=== PATIENT | male | born 1945 | race Caucasian/White ===

== ENCOUNTER 2018-07-17 02:48 | Inpatient (IN) | payer MEDICARE ==
[2018-07-17 04:41] LABS: Basophils # (Auto) 0.1 K/mm3 (0.0-0.1); Eosinophils # (Auto) 0.1 K/mm3 (0.0-0.4); Eosinophils % (Auto) 2.1 % (0.0-4.3); Lymphocytes # (Auto) 1.7 K/mm3 (1.2-5.4); Lymphocytes % (Auto) 27.8 % (13.4-35.0); Mean Corpuscular HGB Conc 36 % (32-34); Mean Corpuscular Hemoglobin 34 pg (28-32); Mean Corpuscular Volume 95 fl (84-94); Monocytes # (Auto) 0.4 K/mm3 (0.0-0.8); Monocytes % (Auto) 6.2 % (0.0-7.3); Platelet Count 133 K/mm3 (140-440); Red Blood Count 4.05 M/mm3 (3.65-5.03); Red Cell Distribution Width 13.5 % (13.2-15.2)
[2018-07-17 04:46] LABS: Hematocrit 38.6 % (35.5-45.6); Hemoglobin 13.9 gm/dl (11.8-15.2)
[2018-07-17 05:04] LABS: Calcium 8.4 mg/dL (8.4-10.2)
--- NOTE | 2018-07-17 08:40 | Emergency Department Report ---
ED Fall HPI - General Chief Complaint: Altered Mental Status Stated Complaint: ETOH Time Seen by Provider: 07/17/18 08:16 Source: family, EMS Mode of arrival: Stretcher Limitations: No Limitations - History of Present Illness Initial Comments: Patient is a 72-year-old male that presents emergency room with complaints of fall with loss of consciousness and hitting his head. Patient states that he was at a [employer] party and was drinking and became weak and passed out. is at bedside and is helping with history of presenting illness. states that the patient passed out fell from a standing position and hit back of his head. states that a bystander did perform CPR on the patient because the patient was blue and did not have a pulse. Per 2 roundS of CPR was done by a bystander and the pulse returned. Patient was unconscious however for approximately 5 minutes.. 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 denies: chest paint, shortness of breath, abdominal pain, hematuria, unable to walk, vertigo, confusion - Related Data Allergies Allergy/AdvReac Type Severity Reaction Status Date / Time No Known Allergies Allergy Unverified 07/17/18 04:07 ED Review of Systems ROS: Stated complaint: ETOH Other details as noted in HPI Constitutional: denies: chills, fever Eyes: denies: eye pain, eye discharge, vision change ENT: denies: ear pain, throat pain Respiratory: denies: cough, shortness of breath, wheezing Cardiovascular: denies: chest pain, palpitations Endocrine: no symptoms reported Gastrointestinal: denies: abdominal pain, nausea, diarrhea Genitourinary: denies: urgency, dysuria Musculoskeletal: denies: back pain, joint swelling, arthralgia Skin: denies: rash, lesions Neurological: denies: headache, weakness, paresthesias Psychiatric: denies: anxiety, depression Hematological/Lymphatic: denies: easy bleeding, easy bruising ED Past Medical Hx - Past Medical History Previous Medical History?: Yes Hx Hypertension: Yes Hx Diabetes: Yes Additional medical history: ETOH abuse - Surgical History Past Surgical History?: No - Family History Family history: no significant - Social History Smoking Status: Never Smoker Substance Use Type: Alcohol ED Physical Exam - General Limitations: Altered Mental Status, Other General appearance: alert, appears intoxicated, lethargic (BUT AROUSABLE. ) - Head Head exam: Present: atraumatic, normocephalic - Eye Eye exam: Present: normal appearance - ENT ENT exam: Present: mucous membranes moist - Neck Neck exam: Present: normal inspection - Respiratory Respiratory exam: Present: normal lung sounds bilaterally. Absent: respiratory distress - Cardiovascular Cardiovascular Exam: Present: regular rate, normal rhythm. Absent: systolic murmur, diastolic murmur, rubs, gallop - GI/Abdominal GI/Abdominal exam: Present: soft, normal bowel sounds - Rectal Rectal exam: Present: deferred - Extremities Exam Extremities exam: Present: normal inspection - Back Exam Back exam: Present: normal inspection - Neurological Exam Neurological exam: Present: alert, oriented X3 (patient is confused about the event only) - Psychiatric Psychiatric exam: Present: normal affect, normal mood - Skin Skin exam: Present: warm, dry, intact, normal color. Absent: rash ED Course Vital Signs 07/17/18 07/17/18 07/17/18 03:52 03:59 04:00 Temperature 97.7 F Pulse Rate 68 65 Respiratory 16 24 Rate Blood Pressure 130/75 124/70 Blood Pressure [Right] O2 Sat by Pulse 96 96 Oximetry 07/17/18 07/17/18 07/17/18 04:16 04:30 04:46 Temperature Pulse Rate 68 68 69 Respiratory 13 22 17 Rate Blood Pressure 116/75 116/75 113/77 Blood Pressure [Right] O2 Sat by Pulse 97 97 99 Oximetry 07/17/18 07/17/18 07/17/18 05:00 05:15 05:30 Temperature Pulse Rate 69 72 71 Respiratory 13 16 18 Rate Blood Pressure 133/77 140/81 133/75 Blood Pressure [Right] O2 Sat by Pulse 98 98 98 Oximetry 07/17/18 07/17/18 07/17/18 05:46 06:00 06:15 Temperature Pulse Rate 71 Respiratory 18 Rate Blood Pressure 105/54 133/75 104/61 Blood Pressure [Right] O2 Sat by Pulse 96 98 97 Oximetry 07/17/18 07/17/18 07/17/18 06:30 06:45 07:00 Temperature Pulse Rate 69 71 71 Respiratory 21 15 17 Rate Blood Pressure 107/61 108/57 132/76 Blood Pressure [Right] O2 Sat by Pulse 96 97 96 Oximetry 07/17/18 07/17/18 07/17/18 07:16 07:33 07:43 Temperature Pulse Rate 71 Respiratory 19 Rate Blood Pressure 132/76 132/76 Blood Pressure 132/76 [Right] O2 Sat by Pulse 95 75 L Oximetry 07/17/18 07/17/18 07/17/18 07:45 08:00 08:15 Temperature Pulse Rate 72 Respiratory 18 Rate Blood Pressure 128/71 114/70 113/66 Blood Pressure [Right] O2 Sat by Pulse 95 Oximetry 07/17/18 07/17/18 07/17/18 08:30 08:46 09:00 Temperature Pulse Rate 72 75 71 Respiratory 22 17 20 Rate Blood Pressure 108/61 158/83 129/73 Blood Pressure [Right] O2 Sat by Pulse 99 96 Oximetry 07/17/18 07/17/18 07/17/18 09:15 09:30 09:50 Temperature Pulse Rate 73 71 74 Respiratory 16 22 15 Rate Blood Pressure 125/68 119/67 119/67 Blood Pressure [Right] O2 Sat by Pulse 98 99 97 Oximetry 07/17/18 07/17/18 07/17/18 10:00 10:15 10:30 Temperature Pulse Rate 73 72 73 Respiratory 16 15 16 Rate Blood Pressure 113/71 114/69 100/76 Blood Pressure [Right] O2 Sat by Pulse 94 96 97 Oximetry 07/17/18 07/17/18 07/17/18 10:46 10:52 11:00 Temperature Pulse Rate 73 73 Respiratory 14 18 20 Rate Blood Pressure 121/75 127/71 Blood Pressure [Right] O2 Sat by Pulse 96 98 96 Oximetry 07/17/18 07/17/18 07/17/18 11:15 11:30 11:45 Temperature Pulse Rate 76 76 73 Respiratory 16 18 18 Rate Blood Pressure 133/78 144/80 126/72 Blood Pressure [Right] O2 Sat by Pulse 88 96 95 Oximetry 07/17/18 07/17/18 07/17/18 12:00 12:15 12:30 Temperature Pulse Rate 75 74 75 Respiratory 20 20 20 Rate Blood Pressure 126/72 122/71 133/78 Blood Pressure [Right] O2 Sat by Pulse 95 85 96 Oximetry 07/17/18 07/17/18 07/17/18 12:45 13:00 13:13 Temperature 97.6 F Pulse Rate 73 74 Respiratory 20 23 Rate Blood Pressure 120/72 128/77 Blood Pressure [Right] O2 Sat by Pulse 94 97 Oximetry - Reevaluation(s) Reevaluation #1: Discussed all results with and patient. Patient agree with plan of care and admission. Patient admitted to the hospitalist service 07/17/18 11:25 Reevaluation #2: She will need a banana bag. An MRI was ordered and will be given the patient prior to leaving ER department. 07/17/18 13:44 - Consultations Consultation #1: Hospitalist consulted for admission. Hospitalist to admit patient. Hospitalist to assume care 07/17/18 11:25 ED Medical Decision Making - Lab Data Result diagrams: 07/17/18 04:32 07/17/18 04:32 - EKG Data EKG shows normal: sinus rhythm, axis, intervals, QRS complexes, ST-T waves Rate: normal - Radiology Data Radiology results: report reviewed FINAL REPORT EXAM: CT HEAD/BRAIN WO CON HISTORY: loc. head injury COMPARISON: None. TECHNIQUE: Multiple contiguous axial images were obtained from the skullbase to the vertex without administration of IV contrast. FINDINGS: There age related cerebral cortical atrophy. There is no parenchymal hemorrhage or extra-axial fluid collection. There is no mass or mass effect. There is no acute territorial infarct. There are scattered areas of decreased attenuation in the subcortical and periventricular white matter, likely due to chronic microvascular ischemic disease. There are calcifications of the bilateral internal carotid arteries and the bilateral vertebral arteries. The ventricles are midline. The subarachnoid spaces and basilar cisterns are clear. There is no skull fracture. The paranasal sinuses are clear. There is mucosal disease in the bilateral sphenoid sinuses. Bilateral orbits are intact. IMPRESSION: No acute intracranial abnormality. Chronic microvascular ischemic changes in the subcortical and periventricular white matter. Mucosal thickening of the sphenoid sinuses. Transcribed By: TERI Dictated By: DOMINIQUE BROWN MD Electronically Authenticated By: DOMINIQUE BROWN MD Signed Date/Time: 07/17/18 0955 - Medical Decision Making Patient is a 72-year-old male that presented to the emergency room with a fall and head injury and prolonged LOC. Per family patient arrested at the scene and was had 2 rounds of CPR. Patient will be admitted to the hospitalist service. Head CT was done in the ER and was negative. Labs are unremarkable except for hyperglycemia. Cardiac workup was done EKG shows sinus rhythm and cardiac labs are unremarkable. - Differential Diagnosis cardiac arrest. Concussion. Head injury. LOC. Acute alcohol intoxicatio Critical Care Time: Yes Critical care attestation.: If time is entered above; I have spent that time in minutes in the direct care of this critically ill patient, excluding procedure time. Critical Care Time: 25 MINUTES FOR CC TIME ED Disposition Clinical Impression: Cardiac arrest, LOC (loss of consciousness), Prolonged loss of consciousness Head injury Qualifiers: Encounter type: initial encounter Qualified Code(s): S09.90XA - Unspecified injury of head, initial encounter Fall Qualifiers: Encounter type: initial encounter Qualified Code(s): W19.XXXA - Unspecified fall, initial encounter Diabetes Qualifiers: Diabetes mellitus type: type 2 Diabetes mellitus snf insulin use: without snf use Diabetes mellitus complication status: without complication Qualified Code(s): E11.9 - Type 2 diabetes mellitus without complications Acute alcohol intoxication Qualifiers: Complication of substance-induced condition: with unspecified complication Qualified Code(s): F10.929 - Alcohol use, unspecified with intoxication, unspecified Disposition: DC-09 OP ADMIT IP TO THIS HOSP Is pt being admited?: Yes Does the pt Need Aspirin: No Condition: Critical Time of Disposition: 10:56
[2018-07-17 09:31] LABS: Creatine Kinase MB 1.4 ng/mL (0.0-4.0)
--- NOTE | 2018-07-17 09:56 | Cat Scan Report ---
FINAL REPORT EXAM: CT HEAD/BRAIN WO CON HISTORY: loc. head injury COMPARISON: None. TECHNIQUE: Multiple contiguous axial images were obtained from the skullbase to the vertex without administration of IV contrast. FINDINGS: There age related cerebral cortical atrophy. There is no parenchymal hemorrhage or extra-axial fluid collection. There is no mass or mass effect. There is no acute territorial infarct. There are scattered areas of decreased attenuation in the subcortical and periventricular white matter, likely due to chronic microvascular ischemic disease. There are calcifications of the bilateral internal carotid arteries and the bilateral vertebral arteries. The ventricles are midline. The subarachnoid spaces and basilar cisterns are clear. There is no skull fracture. The paranasal sinuses are clear. There is mucosal disease in the bilateral sphenoid sinuses. Bilateral orbits are intact. IMPRESSION: No acute intracranial abnormality. Chronic microvascular ischemic changes in the subcortical and periventricular white matter. Mucosal thickening of the sphenoid sinuses.
[2018-07-17 12:07] LABS: Bacteria,Urine 1+ /HPF (Negative); Bilirubin,Urine NEG (Negative); Blood,Urine NEG (Negative); Color,Urine Yellow (Yellow); Mucus,Urine FEW /HPF; Protein,Urine <15 mg/dL mg/dL (Negative); RBC,Urine < 1.0 /HPF (0.0-6.0); Urobilinogen,Urine < 2.0 mg/dL (<2.0)
[2018-07-17 12:17] LABS: Amphetamine Screen,Urine PRESUMPTIVE NEGATIVE; Benzodiazepines Screen,Urine PRESUMPTIVE NEGATIVE; Cannabinoid Screen,Urine PRESUMPTIVE NEGATIVE; Cocaine Screen,Urine PRESUMPTIVE NEGATIVE; Methadone Screen,Urine PRESUMPTIVE NEGATIVE; Opiate Screen,Urine PRESUMPTIVE NEGATIVE
[2018-07-17] MEDS ORDERED: VITAMIN B-1 100 MG, FOLVITE 1 MG, INFUVITE 10 ML in NACL 0.9% 1000 ML 1,000 ML IV ONE (14:00)
--- NOTE | 2018-07-17 17:41 | History and Physical Report ---
History of Present Illness Date of examination: 07/17/18 Date of admission: 07/17/18 12:25 Chief complaint: Chief complaint: Apparently passed out at 1 AM Cardiac arrest following the episode of syncope and CPR. History of present illness: History of Present Illness: 72-year-old male with history of hypertension and diabetes apparently passed out around 1 AM. Patient was brought to the emergency room around 2 AM. Patient was partying and had excess alcohol. As per patient was standing and when he suddenly collapsed to the floor. thought he was blue and in cardiac arrest. Started CPR by a bystander and apparently pulse returned. Patient was apparently unconscious for 5 minutes. No shortness of breath. No chest pain. No exacerbating or relieving factors. Syncope witnessed by a bystander and the . Patient still feels lightheaded Past Medical History Previous Medical History?: Yes Hx Hypertension: Yes Hx Diabetes: Yes Additional medical history: ETOH abuse Surgical History Past Surgical History?: No Family History Family history: no significant Social History Smoking Status: Never Smoker Substance Use Type: Alcohol Review of Systems ROS: Stated complaint: ETOH Other details as noted in HPI Constitutional: denies: chills, fever Eyes: denies: eye pain, eye discharge, vision change ENT: denies: ear pain, throat pain Respiratory: denies: cough, shortness of breath, wheezing Cardiovascular: denies: chest pain, palpitations Endocrine: no symptoms reported Gastrointestinal: denies: abdominal pain, nausea, diarrhea Genitourinary: denies: urgency, dysuria Musculoskeletal: denies: back pain, joint swelling, arthralgia Skin: denies: rash, lesions Neurological: denies: headache, weakness, paresthesias Psychiatric: denies: anxiety, depression Hematological/Lymphatic: denies: easy bleeding, easy bruising Medications and Allergies Allergies Allergy/AdvReac Type Severity Reaction Status Date / Time No Known Allergies Allergy Unverified 07/17/18 04:07 Active Meds: Active Medications Folic Acid 1 mg/ Multivitamins /Minerals 10 ml/ Thiamine HCl 100 mg/ Sodium Chloride 1,000 mls @ 125 mls/hr IV .BY DURATION GABRIELLA Sodium Chloride (Nacl 0.9% 1000 Ml) 1,000 mls @ 125 mls/hr IV .BY DURATION GABRIELLA Thiamine HCl 100 mg/ Folic Acid 1 mg/ Multivitamins/Minerals 10 ml/ Sodium Chloride 1,011.2 mls @ 250 mls/hr IV ONCE ONE Stop: 07/17/18 18:02 Exam - Physical Exam Narrative exam: Patient lying in bed and talking - Constitutional Vitals: Temp Pulse Resp BP Pulse Ox 97.7 F 76 16 151/85 96 07/17/18 16:26 07/17/18 16:26 07/17/18 16:26 07/17/18 16:26 07/17/18 16:26 General appearance: Present: no acute distress, well-nourished - EENT Eyes: Present: PERRL ENT: hearing intact, clear oral mucosa - Neck Neck: Present: supple, normal ROM - Respiratory Respiratory effort: normal Respiratory: bilateral: CTA - Cardiovascular Rhythm: regular Heart Sounds: Present: S1 & S2. Absent: rub, click - Extremities Extremities: no ischemia, pulses intact, pulses symmetrical, No edema Peripheral Pulses: within normal limits - Abdominal General gastrointestinal: Present: soft, non-tender, non-distended, normal bowel sounds Male genitourinary: Present: normal - Rectal Rectal Exam: deferred - Integumentary Integumentary: Present: clear, warm, dry - Musculoskeletal Musculoskeletal: gait normal, strength equal bilaterally - Psychiatric Psychiatric: appropriate mood/affect, intact judgment & insight - Neurologic Neurologic: CNII-XII intact, moves all extremities - Allied Health Allied health notes reviewed: nursing, case management Results - Labs CBC & Chem 7: 07/17/18 04:32 07/17/18 04:32 Labs: Laboratory Last Values WBC 6.3 K/mm3 (4.5-11.0) 07/17/18 04:32 RBC 4.05 M/mm3 (3.65-5.03) 07/17/18 04:32 Hgb 13.9 gm/dl (11.8-15.2) 07/17/18 04:32 Hct 38.6 % (35.5-45.6) 07/17/18 04:32 MCV 95 fl (84-94) H 07/17/18 04:32 MCH 34 pg (28-32) H 07/17/18 04:32 MCHC 36 % (32-34) H 07/17/18 04:32 RDW 13.5 % (13.2-15.2) 07/17/18 04:32 Plt Count 133 K/mm3 (140-440) L 07/17/18 04:32 Lymph % (Auto) 27.8 % (13.4-35.0) 07/17/18 04:32 [place] % (Auto) 6.2 % (0.0-7.3) 07/17/18 04:32 Eos % (Auto) 2.1 % (0.0-4.3) 07/17/18 04:32 Baso % (Auto) 1.0 % (0.0-1.8) 07/17/18 04:32 Lymph # 1.7 K/mm3 (1.2-5.4) 07/17/18 04:32 [place] # 0.4 K/mm3 (0.0-0.8) 07/17/18 04:32 Eos # 0.1 K/mm3 (0.0-0.4) 07/17/18 04:32 Baso # 0.1 K/mm3 (0.0-0.1) 07/17/18 04:32 Seg Neutrophils % 62.9 % (40.0-70.0) 07/17/18 04:32 Seg Neutrophils # 4.0 K/mm3 (1.8-7.7) 07/17/18 04:32 Sodium 133 mmol/L (137-145) L 07/17/18 04:32 Potassium 3.8 mmol/L (3.6-5.0) 07/17/18 04:32 Chloride 92.8 mmol/L (98-107) L 07/17/18 04:32 Carbon Dioxide 21 mmol/L (22-30) L 07/17/18 04:32 Anion Gap 23 mmol/L 07/17/18 04:32 BUN 12 mg/dL (9-20) 07/17/18 04:32 Creatinine 1.2 mg/dL (0.8-1.5) 07/17/18 04:32 Estimated GFR 60 ml/min 07/17/18 04:32 BUN/Creatinine Ratio 10 % 07/17/18 04:32 Glucose 441 mg/dL (75-100) H 07/17/18 04:32 POC Glucose 279 (70-105) H 07/17/18 16:24 Calcium 8.4 mg/dL (8.4-10.2) 07/17/18 04:32 Total Creatine Kinase 55 units/L (55-170) 07/17/18 09:03 CK-MB (CK-2) 1.4 ng/mL (0.0-4.0) 07/17/18 09:03 CK-MB (CK-2) Rel Index 2.5 (0-4) 07/17/18 09:03 Troponin T < 0.010 ng/mL (0.00-0.029) 07/17/18 09:03 Urine Color Yellow (Yellow) 07/17/18 11:42 Urine Turbidity Clear (Clear) 07/17/18 11:42 Urine pH 5.0 (5.0-7.0) 07/17/18 11:42 Ur Specific [place] 1.024 (1.003-1.030) 07/17/18 11:42 Urine Protein <15 mg/dl mg/dL (Negative) 07/17/18 11:42 Urine Glucose (UA) >=500 mg/dL (Negative) 07/17/18 11:42 Urine Ketones Tr mg/dL (Negative) 07/17/18 11:42 Urine Blood Neg (Negative) 07/17/18 11:42 Urine Nitrite Neg (Negative) 07/17/18 11:42 Urine Bilirubin Neg (Negative) 07/17/18 11:42 Urine Urobilinogen < 2.0 mg/dL (<2.0) 07/17/18 11:42 Ur Leukocyte Esterase Neg (Negative) 07/17/18 11:42 Urine WBC (Auto) 2.0 /HPF (0.0-6.0) 07/17/18 11:42 Urine RBC (Auto) < 1.0 /HPF (0.0-6.0) 07/17/18 11:42 U Epithel Cells (Auto) < 1.0 /HPF (0-13.0) 07/17/18 11:42 Urine Bacteria (Auto) 1+ /HPF (Negative) 07/17/18 11:42 Urine Mucus Few /HPF 07/17/18 11:42 Salicylates < 0.3 mg/dL (2.8-20.0) L 07/17/18 04:32 Urine Opiates Screen Presumptive negative 07/17/18 11:42 Urine Methadone Screen Presumptive negative 07/17/18 11:42 Acetaminophen < 5.0 ug/mL (10.0-30.0) L 07/17/18 04:32 Ur Barbiturates Screen Presumptive negative 07/17/18 11:42 Ur Phencyclidine Scrn Presumptive negative 07/17/18 11:42 Ur Amphetamines Screen Presumptive negative 07/17/18 11:42 U Benzodiazepines Scrn Presumptive negative 07/17/18 11:42 Urine Cocaine Screen Presumptive negative 07/17/18 11:42 U Marijuana (THC) Screen Presumptive negative 07/17/18 11:42 Drugs of Abuse Note Disclamer 07/17/18 11:42 Plasma/Serum Alcohol 0.30 % (0-0.07) H 07/17/18 04:32 Short CBC 07/17/18 Range/Units 04:32 WBC 6.3 (4.5-11.0) K/mm3 Hgb 13.9 (11.8-15.2) gm/dl Hct 38.6 (35.5-45.6) % Plt Count 133 L (140-440) K/mm3 BMP 07/17/18 04:32 Sodium 133 L Potassium 3.8 Chloride 92.8 L Carbon Dioxide 21 L BUN 12 Creatinine 1.2 Glucose 441 H Calcium 8.4 Cardiac Enzymes 07/17/18 Range/Units 09:03 Total Creatine Kinase 55 (55-170) units/L CK-MB (CK-2) 1.4 (0.0-4.0) ng/mL Troponin T < 0.010 (0.00-0.029) ng/mL Urine 07/17/18 Range/Units 11:42 Urine Color Yellow (Yellow) Urine pH 5.0 (5.0-7.0) Ur Specific [place] 1.024 (1.003-1.030) Urine Protein <15 mg/dl (Negative) mg/dL Urine Glucose (UA) >=500 (Negative) mg/dL - Imaging and Cardiology EKG: report reviewed (normal sinus rhythm heart rate of [address]-T wave changes-EKG interpreted by me) CT Scan - head: report reviewed (CT head no acute findings) Imaging and Cardiology: IMPRESSION: No acute intracranial abnormality. Chronic microvascular ischemic changes in the subcortical and periventricular white matter. Mucosal thickening of the sphenoid sinuses. Assessment and Plan Advance Directives: Yes (full code) VTE prophylaxis?: Chemical Plan of care discussed with patient/family: Yes - Patient Problems (1) Syncope Current Visit: Yes Status: Acute Qualifiers: Syncope type: unspecified Qualified Code(s): R55 - Syncope and collapse Plan to address problem: Syncope secondary to EtOH intoxication. Syncope workup Echocardiogram Lexiscan and carotid duplex scan (2) Acute alcohol intoxication Current Visit: Yes Status: Acute Qualifiers: Complication of substance-induced condition: with unspecified complication Plan to address problem: Patient's alcohol level is 0.3 which is high Will initiate CIWA protocol (3) Cardiac arrest Current Visit: Yes Status: Acute Plan to address problem: Doubt cardiac arrest Patient is doing extremely well and no signs of any respiratory failure or arrhythmias We will keep him on telemetry (4) LOC (loss of consciousness) Current Visit: Yes Status: Acute Plan to address problem: Secondary to EtOH--- his levels were high (5) Hypertension Current Visit: Yes Status: Chronic Qualifiers: Hypertension type: essential hypertension Qualified Code(s): I10 - Essential (primary) hypertension Plan to address problem: Continue antihypertensives (6) Type 2 diabetes mellitus Current Visit: Yes Status: Chronic Qualifiers: Diabetes mellitus termite treater helper insulin use: without termite treater helper use Plan to address problem: Continue home medications and coverage Check A1c (7) DVT prophylaxis Current Visit: Yes Status: Acute Plan to address problem: Patient initiated on Lovenox GI prophylaxis initiated
[2018-07-17] MEDS ORDERED: TYLENOL PO PRN (17:51)
[2018-07-17] MEDS ORDERED: SODIUM CHLORIDE FLUSH SYRINGE 10 ML IV PRN (17:51)
[2018-07-17] MEDS ORDERED: MORPHINE IV PRN (17:51)
[2018-07-17] MEDS ORDERED: PERCOCET 5/325 PO PRN (17:51)
[2018-07-17] MEDS ORDERED: ZOFRAN IV PRN (17:51)
[2018-07-17] MEDS ORDERED: NACL 0.9% 1000 ML 1,000 ML IV SCH (18:00)
[2018-07-17] MEDS ORDERED: LIBRIUM PO PRN (18:07)
[2018-07-17] MEDS ORDERED: ATIVAN IV PRN ×3 (18:07)
[2018-07-17] MEDS: TRADJENTA PO SCH (18:55)
[2018-07-17] MEDS: ZESTRIL PO SCH (18:55)
[2018-07-17] MEDS: PEPCID IV SCH (23:15)
[2018-07-17] MEDS: SODIUM CHLORIDE FLUSH SYRINGE 10 ML IV SCH (23:16)
[2018-07-17] MEDS: HumaLOG SUB-Q SCH (23:17)
[2018-07-17] MEDS: 1: FOLVITE 1 MG, INFUVITE 10 ML, VITAMIN B-1 100 MG in NACL 0.9% 1000 ML 988.8 ML 2: NA IV SCH (23:26)
[2018-07-18 04:41] LABS: Basophils # (Auto) 0.1 K/mm3 (0.0-0.1); Basophils % (Auto) 0.8 % (0.0-1.8); Eosinophils # (Auto) 0.2 K/mm3 (0.0-0.4); Lymphocytes # (Auto) 1.8 K/mm3 (1.2-5.4); Mean Corpuscular HGB Conc 36 % (32-34); Mean Corpuscular Hemoglobin 34 pg (28-32); Mean Corpuscular Volume 95 fl (84-94); Monocytes # (Auto) 0.6 K/mm3 (0.0-0.8); Monocytes % (Auto) 7.3 % (0.0-7.3); Platelet Count 149 K/mm3 (140-440); Red Cell Distribution Width 13.5 % (13.2-15.2)
[2018-07-18 04:53] LABS: Hemoglobin 14.1 gm/dl (11.8-15.2)
[2018-07-18 04:54] LABS: Hematocrit 38.9 % (35.5-45.6)
[2018-07-18 05:14] LABS: Alanine Aminotransferase 11 units/L (7-56); Albumin 3.5 g/dL (3.9-5); BUN/Creatinine Ratio 14; Blood Urea Nitrogen 14 mg/dL (9-20); Calcium 8.4 mg/dL (8.4-10.2); Hemolysis Index 67
[2018-07-18] MEDS: 1: FOLVITE 1 MG, INFUVITE 10 ML, VITAMIN B-1 100 MG in NACL 0.9% 1000 ML 988.8 ML 2: NA IV SCH ×4 (08:01→22:44)
[2018-07-18] MEDS: HumaLOG SUB-Q SCH ×4 (08:03→22:26)
[2018-07-18] MEDS ORDERED: LEXISCAN IV ONE ×2 (09:44→09:46)
[2018-07-18] MEDS: SODIUM CHLORIDE FLUSH SYRINGE 10 ML IV SCH ×2 (11:16→22:44)
[2018-07-18] MEDS: PEPCID IV SCH ×2 (11:16→22:27)
--- NOTE | 2018-07-18 12:13 | Event Note ---
Date: 07/18/18 Detailed cardiology consultation dictated. A: #1: Syncope #2: Acute ETOH intoxication #3: Abnormal stress test #4: HTN #5: DM P: S/p lexiscan MPI stress test this AM which showed TID, cannot exclude significant stenosis of the proximal vessels or triple vessel disease, normal LVEF. Coronary angiography recommended for definitive diagnosis. Will plan for LHC in AM. NPO after MN. Initiate lipitor. Optimize anti-hypertensive regimen - initiate lopressor. Await echo. Larisa MENDIOLA NP / DR. CHAMPION
[2018-07-18] MEDS: ZESTRIL PO SCH (12:30)
[2018-07-18] MEDS: TRADJENTA PO SCH (12:31)
[2018-07-18] MEDS ORDERED: NACL 0.9% 500 ML 500 ML IV SCH (13:00)
[2018-07-18] MEDS ORDERED: LANTUS SUB-Q ONE (14:47)
--- NOTE | 2018-07-18 15:11 | Progress Note ---
Assessment and Plan Assessment and plan: 72-year-old man presented to the emergency department was a complaints of passed out. Patient has been drinking alcohol and passed out, CPR was done by bystander. Patient passed out for 5 minutes. At presentation to ED patient was alert and oriented, alcohol level was 0.3 at presentation. Passed out, ? cardiac arrest - Doubt the patient has cardiac arrest - Alert and oriented x3 - Colored Doppler was negative Abnormal Stress test, cardiology consulted and will do cardiac cath tomorrow Cardiology consulted Diabetes mellitus with hyperglycemia - Patient started on sliding scale insulin, basal insulin - Accu-Chek, ADA diet - We will monitor Uncontrolled hypertension - Patient was on metoprolol, I added HCTZ and amlodipine - We'll monitor and adjust as needed Alcohol intoxication - alcohol level was 0.3 at presentation Alcohol withdrawal - Patient is on CIMN protocol DVT prophylaxis - Lovenox History Interval history: Patient was seen and evaluated this morning, patient's complaining right sided chest pain. Patient denied any dizziness or SOB. Hospitalist Physical - Physical exam Narrative exam: Not in cardiopulmonary distress. The patient appeared well nourished and normally developed. Vital signs as documented. Head exam is unremarkable. No scleral icterus . Neck is without jugular venous distension, thyromegaly, or carotid bruits. Lungs are clear to auscultation. Cardiac exam reveals regular rate and Rhythm. First and second heart sounds normal. No murmurs, rubs or gallops. Abdominal exam reveals normal bowel sounds, no masses, no organomegaly and no aortic enlargement. Extremities are nonedematous and both femoral and pedal pulses are normal. CARDIOLOGY CLINICAL CONSULTANT: Alert and oriented 3. No focal weakness. - Constitutional Vitals: Temp Pulse Resp BP Pulse Ox 98.0 F 88 20 188/90 97 07/18/18 12:53 07/18/18 12:53 07/18/18 12:53 07/18/18 12:53 07/18/18 12:53 General appearance: Present: no acute distress, well-nourished Results - Labs CBC & Chem 7: 07/18/18 02:56 07/18/18 02:56 Labs: Laboratory Last Values WBC 8.4 K/mm3 (4.5-11.0) 07/18/18 02:56 RBC 4.10 M/mm3 (3.65-5.03) 07/18/18 02:56 Hgb 14.1 gm/dl (11.8-15.2) 07/18/18 02:56 Hct 38.9 % (35.5-45.6) 07/18/18 02:56 MCV 95 fl (84-94) H 07/18/18 02:56 MCH 34 pg (28-32) H 07/18/18 02:56 MCHC 36 % (32-34) H 07/18/18 02:56 RDW 13.5 % (13.2-15.2) 07/18/18 02:56 Plt Count 149 K/mm3 (140-440) 07/18/18 02:56 Lymph % (Auto) 22.0 % (13.4-35.0) 07/18/18 02:56 [place] % (Auto) 7.3 % (0.0-7.3) 07/18/18 02:56 Eos % (Auto) 2.0 % (0.0-4.3) 07/18/18 02:56 Baso % (Auto) 0.8 % (0.0-1.8) 07/18/18 02:56 Lymph # 1.8 K/mm3 (1.2-5.4) 07/18/18 02:56 [place] # 0.6 K/mm3 (0.0-0.8) 07/18/18 02:56 Eos # 0.2 K/mm3 (0.0-0.4) 07/18/18 02:56 Baso # 0.1 K/mm3 (0.0-0.1) 07/18/18 02:56 Seg Neutrophils % 67.9 % (40.0-70.0) 07/18/18 02:56 Seg Neutrophils # 5.7 K/mm3 (1.8-7.7) 07/18/18 02:56 Sodium 140 mmol/L (137-145) D 07/18/18 02:56 Potassium 4.1 mmol/L (3.6-5.0) 07/18/18 02:56 Chloride 104.9 mmol/L (98-107) 07/18/18 02:56 Carbon Dioxide 22 mmol/L (22-30) 07/18/18 02:56 Anion Gap 17 mmol/L 07/18/18 02:56 BUN 14 mg/dL (9-20) 07/18/18 02:56 Creatinine 1.0 mg/dL (0.8-1.5) 07/18/18 02:56 Estimated GFR > 60 ml/min 07/18/18 02:56 BUN/Creatinine Ratio 14 % 07/18/18 02:56 Glucose 213 mg/dL (75-100) H 07/18/18 02:56 POC Glucose 273 (70-105) H 07/18/18 12:57 Hemoglobin A1c 10.1 % (4-6) H 07/17/18 18:30 Calcium 8.4 mg/dL (8.4-10.2) 07/18/18 02:56 Phosphorus 3.70 mg/dL (2.5-4.5) 07/17/18 18:30 Magnesium 1.90 mg/dL (1.7-2.3) 07/17/18 18:30 Total Bilirubin 0.50 mg/dL (0.1-1.2) 07/18/18 02:56 AST 16 units/L (5-40) 07/18/18 02:56 ALT 11 units/L (7-56) 07/18/18 02:56 Alkaline Phosphatase 79 units/L (35-129) 07/18/18 02:56 Total Creatine Kinase 55 units/L (55-170) 07/17/18 09:03 CK-MB (CK-2) 1.4 ng/mL (0.0-4.0) 07/17/18 09:03 CK-MB (CK-2) Rel Index 2.5 (0-4) 07/17/18 09:03 Troponin T < 0.010 ng/mL (0.00-0.029) 07/18/18 07:07 Total Protein 6.8 g/dL (6.3-8.2) 07/18/18 02:56 Albumin 3.5 g/dL (3.9-5) L 07/18/18 02:56 Albumin/Globulin Ratio 1.1 % 07/18/18 02:56 Urine Color Yellow (Yellow) 07/17/18 11:42 Urine Turbidity Clear (Clear) 07/17/18 11:42 Urine pH 5.0 (5.0-7.0) 07/17/18 11:42 Ur Specific [place] 1.024 (1.003-1.030) 07/17/18 11:42 Urine Protein <15 mg/dl mg/dL (Negative) 07/17/18 11:42 Urine Glucose (UA) >=500 mg/dL (Negative) 07/17/18 11:42 Urine Ketones Tr mg/dL (Negative) 07/17/18 11:42 Urine Blood Neg (Negative) 07/17/18 11:42 Urine Nitrite Neg (Negative) 07/17/18 11:42 Urine Bilirubin Neg (Negative) 07/17/18 11:42 Urine Urobilinogen < 2.0 mg/dL (<2.0) 07/17/18 11:42 Ur Leukocyte Esterase Neg (Negative) 07/17/18 11:42 Urine WBC (Auto) 2.0 /HPF (0.0-6.0) 07/17/18 11:42 Urine RBC (Auto) < 1.0 /HPF (0.0-6.0) 07/17/18 11:42 U Epithel Cells (Auto) < 1.0 /HPF (0-13.0) 07/17/18 11:42 Urine Bacteria (Auto) 1+ /HPF (Negative) 07/17/18 11:42 Urine Mucus Few /HPF 07/17/18 11:42 Salicylates < 0.3 mg/dL (2.8-20.0) L 07/17/18 04:32 Urine Opiates Screen Presumptive negative 07/17/18 11:42 Urine Methadone Screen Presumptive negative 07/17/18 11:42 Acetaminophen < 5.0 ug/mL (10.0-30.0) L 07/17/18 04:32 Ur Barbiturates Screen Presumptive negative 07/17/18 11:42 Ur Phencyclidine Scrn Presumptive negative 07/17/18 11:42 Ur Amphetamines Screen Presumptive negative 07/17/18 11:42 U Benzodiazepines Scrn Presumptive negative 07/17/18 11:42 Urine Cocaine Screen Presumptive negative 07/17/18 11:42 U Marijuana (THC) Screen Presumptive negative 07/17/18 11:42 Drugs of Abuse Note Disclamer 07/17/18 11:42 Plasma/Serum Alcohol 0.30 % (0-0.07) H 07/17/18 04:32
[2018-07-18] MEDS: NORVASC PO SCH (17:16)
[2018-07-18] MEDS: HCTZ PO SCH (17:16)
--- NOTE | 2018-07-18 18:30 | Cat Scan Report ---
FINAL REPORT EXAM: CT ANGIO CHEST HISTORY: Right sided chest pain TECHNIQUE: Following administration of IV contrast axial helical imaging was performed through the chest with sagittal and coronal reformatted images and maximum intensity projection images obtained. Comparison: None FINDINGS: Visualization of fine detail in portions of the chest is limited by motion artifact. The study remains of diagnostic quality. There is no evidence of infiltrate, pneumothorax or pleural fluid collection. The trachea and bronchi are patent. The heart is enlarged. There is evidence of atherosclerotic vascular calcification of the coronary arteries. The thoracic aorta is normal caliber. There is no evidence of intrathoracic adenopathy. No filling defects are demonstrated within the central pulmonary arteries to suggest the presence of pulmonary artery emboli. Peripheral segmental pulmonary artery emboli could be missed or overcalled due to motion artifact. The visualized portion the upper abdomen is notable for moderate to marked distention of the stomach which contains ingested contents. The bony structures are notable for spondylitic change of the thoracic spine. IMPRESSION: 1. Visualization of fine detail in portions of the chest is limited by motion artifact. 2. No evidence of central pulmonary artery emboli. Peripheral segmental pulmonary artery emboli could be missed or overcalled due to motion artifact. 3. No evidence of an acute intrathoracic process. 4. Cardiomegaly with evidence of atherosclerotic vascular calcification of the coronary arteries. 5. Moderate to marked distention of the stomach which contains ingested contents. 6. Spondylitic change thoracic spine.
[2018-07-18] MEDS: LOVENOX SUB-Q SCH (22:25)
[2018-07-18] MEDS: LOPRESSOR PO SCH (22:25)
[2018-07-18] MEDS: LANTUS SUB-Q SCH (22:26)
--- NOTE | 2018-07-18 23:24 | Treadmill Report ---
Resting myocardial perfusion images revealed slightly diminished radioisotope activity in the inferior wall. On post-Lexiscan, the images revealed again similarly decreased uptake in inferior wall, very small area. On gated scan, ejection fraction noted to be normal at 63% without any segmental motion abnormality. However, there was a transient ischemic dilatation noted on post-Lexiscan images up to 1.21 ratio. IMPRESSION: 1. This test is considered abnormal because of transient ischemic dilatation, which may indicate significant stenosis of the proximal vessel or triple vessel disease. 2. Clinical correlation and further workup recommended. JOB# [id number] KIMBERLEY/NAVEED
--- NOTE | 2018-07-19 01:05 | Consultation ---
A 72-year-old patient. REQUESTING PHYSICIAN: Dr. Reid Vitale. REASON FOR CONSULTATION: Positive myocardial perfusion imaging studies. HISTORY OF PRESENT ILLNESS: This 72-year-old patient from [place], being in this country [place] many years, had a syncopal episode at 1 a.m. while he was partying. He had 2 or 3 drinks of alcohol. He suddenly collapsed to the floor and by standard did CPR for about 5 minutes with return of pulse. According to the patient's , he was noted to be blue in color. The patient denied any palpitations, chest pain or dizziness prior to passing out. The patient has history of diabetes mellitus for the last 15 years and high cholesterol in 300 mg/dL. He is taking medication for diabetes and high cholesterol. The patient is not sure about the medication for cholesterol. SOCIAL HISTORY: The patient is retired. He does not smoke. Takes alcohol regularly. No history of TIA or stroke in the past. FAMILY HISTORY: No history of myocardial infarction or angina pectoris. No history of congestive heart failure. No history of chronic kidney disease. ALLERGIES: None known. REVIEW OF SYSTEMS: No history of thyroid disease. No history of known hypertension. No history of GI problems. He has had endoscope done. GENITOURINARY: No history of prostate problems or kidney failure. NEUROPSYCHIATRY: No history of TIA or stroke. PHYSICAL EXAMINATION: VITAL SIGNS: Height 5 feet 3 inches, body weight is 78 kg, BMI of 30.5 kg per meter squared. GENERAL: The patient is alert, oriented to time, place, and person.Loss of memory for past events. NECK: No JVD elevation, no bruits noted. HEART: PMI not palpable. Heart sounds heard well. No gallops or murmurs appreciated. LUNGS: Clear. ABDOMEN: Soft, nontender. Liver and spleen not palpable. Bowel sounds active. EXTREMITIES: Femorals are felt well without any bruit. EXTREMITIES: Pedal pulses +1. No edema noted. DIAGNOSTIC DATA: EKG sinus rhythm within normal limits. Chest x-ray unremarkable. CT of the head suggestive of microvascular disease. LABORATORY DATA: Hemoglobin 14.1 g percent. MCV is 95, slightly elevated. Sodium is 140, potassium 4.1, BUN is 14, creatinine 1.0, and blood sugars are 300-200 mg percent on several occasions. Magnesium level is 1.9. Telemetry did not reveal any arrhythmias. This morning, he underwent myocardial perfusion imaging studies revealing normal ejection fraction; however, he had a transient ischemic dilatation of significant degree 1.21 ratio. IMPRESSION: 1. Syncope. 2. Diabetes mellitus, uncontrolled. 3. History of alcohol abuse. 4. Hypercholesterolemia,300 mg percent. DISCUSSION: Because the patient has a risk factors for coronary artery disease, namely diabetes and hypercholesterolemia, and abnormal transient ischemic dilatation, we cannot exclude a significant proximal stenosis of coronary artery or triple vessel disease. RECOMMENDATIONS: Recommend to have coronary artery angiogram for definitive diagnosis and treatment plan. JOB# [id number] KIMBERLEY/NAVEED MORALES
[2018-07-19 05:49] LABS: INR 0.99 (0.87-1.13)
[2018-07-19 05:52] LABS: Basophils # (Auto) 0.1 K/mm3 (0.0-0.1); Basophils % (Auto) 1.1 % (0.0-1.8); Eosinophils # (Auto) 0.2 K/mm3 (0.0-0.4); Eosinophils % (Auto) 2.7 % (0.0-4.3); Hematocrit 39.3 % (35.5-45.6); Hemoglobin 13.9 gm/dl (11.8-15.2); Lymphocytes # (Auto) 1.8 K/mm3 (1.2-5.4); Lymphocytes % (Auto) 21.1 % (13.4-35.0); Mean Corpuscular HGB Conc 35 % (32-34); Mean Corpuscular Hemoglobin 34 pg (28-32); Mean Corpuscular Volume 95 fl (84-94); Monocytes # (Auto) 0.6 K/mm3 (0.0-0.8); Monocytes % (Auto) 6.5 % (0.0-7.3); Platelet Count 142 K/mm3 (140-440); Red Blood Count 4.13 M/mm3 (3.65-5.03); Red Cell Distribution Width 13.5 % (13.2-15.2)
[2018-07-19 06:06] LABS: BUN/Creatinine Ratio 11; Blood Urea Nitrogen 12 mg/dL (9-20); Calcium 8.6 mg/dL (8.4-10.2); Chol/HDL Ratio 3.61 %; HDL Cholesterol 34 mg/dL (40-59); Hemolysis Index 6; LDL Cholesterol,Direct 87 mg/dL (50-130)
[2018-07-19] MEDS ORDERED: K-DUR PO ONE (06:33)
[2018-07-19] MEDS: 1: FOLVITE 1 MG, INFUVITE 10 ML, VITAMIN B-1 100 MG in NACL 0.9% 1000 ML 988.8 ML 2: NA IV SCH (06:39)
[2018-07-19] MEDS: HumaLOG SUB-Q SCH ×4 (08:15→22:40)
[2018-07-19] MEDS ORDERED: ASPIRIN ONE (08:41)
[2018-07-19] MEDS ORDERED: ASPIRIN PO ONE (09:00)
[2018-07-19] MEDS ORDERED: NACL 0.9% 500 ML 500 ML IV SCH (09:00)
[2018-07-19] MEDS ORDERED: HEPARIN/NS 5000 UNIT/500ML(CATH LAB) 1,000 ML IR ONE (09:05)
[2018-07-19] MEDS ORDERED: VERSED ONE (09:05)
[2018-07-19] MEDS ORDERED: NITROGLYCERIN SYRINGE 3 ML ONE (09:06)
[2018-07-19] MEDS ORDERED: XYLOCAINE 2% INFILTRATI ONE (09:06)
[2018-07-19] MEDS ORDERED: SUBLIMAZE ONE (09:06)
[2018-07-19] MEDS ORDERED: CALAN ONE (09:06)
--- NOTE | 2018-07-19 09:22 | Progress Note ---
Assessment and Plan Assessment and plan: 72-year-old man presented to the emergency department was a complaints of passed out. Patient has been drinking alcohol and passed out, CPR was done by bystander. Patient passed out for 5 minutes. At presentation to ED patient was alert and oriented, alcohol level was 0.3 at presentation. Passed out, ? cardiac arrest - Doubt the patient has cardiac arrest - Alert and oriented x1 - Colored Doppler was negative Abnormal Stress test, cardiology consulted Cardiology consulted- Per cardiology S/p C this AM with PCI of prox LAD. Initiate DAPT with plavix and ASA. Echo reviewed - EF 50-55%, mild to mod LVH, impaired relaxation, trace TR. Syncope. -per spouse, patient hit the floor hard -?Concusion. UNABLE to obtain MRI due to recent cardiac cath and stent placement -Will repeat CT head -Obtain Nurology eval Diabetes mellitus with hyperglycemia - Patient started on sliding scale insulin, basal insulin - Accu-Chek, ADA diet - We will monitor Uncontrolled hypertension - Patient was on metoprolol, I added HCTZ and amlodipine - We'll monitor and adjust as needed Alcohol intoxication - alcohol level was 0.3 at presentation - continue banana bag Alcohol withdrawal with encephalopathy - Patient is on CIWA protocol - Although spouse denies alcohol use, patients etoh level on admission was 0.3 - Neurology consult. -CT reviewed was negative - check B12 level Hypokalemia -Replace DVT prophylaxis - Lovenox Discussed with cardiology team. History Interval history: Patient seen and examined today, remains with AMS. Spouse at bedside, reports that the patient is not an alcoholic, she actually is quit upset that this was mentioned in the first place. No other complaints noted. Hospitalist Physical - Physical exam Narrative exam: Not in cardiopulmonary distress. The patient appeared well nourished and normally developed. Vital signs as documented. Head exam is unremarkable. No scleral icterus . Neck is without jugular venous distension, thyromegaly, or carotid bruits. Lungs are clear to auscultation. Cardiac exam reveals regular rate and Rhythm. First and second heart sounds normal. No murmurs, rubs or gallops. Abdominal exam reveals normal bowel sounds, no masses, no organomegaly and no aortic enlargement. Extremities are nonedematous and both femoral and pedal pulses are normal. CAN VACUUM TESTER: Alert and oriented 1. No focal weakness. - Constitutional Vitals: Temp Pulse Resp BP Pulse Ox 98.3 F 69 20 165/78 98 07/19/18 07:49 07/19/18 07:49 07/19/18 07:49 07/19/18 07:49 07/19/18 07:49 General appearance: Present: no acute distress, well-nourished Results - Labs CBC & Chem 7: 07/19/18 04:49 07/19/18 04:49 Labs: Laboratory Last Values WBC 8.8 K/mm3 (4.5-11.0) 07/19/18 04:49 RBC 4.13 M/mm3 (3.65-5.03) 07/19/18 04:49 Hgb 13.9 gm/dl (11.8-15.2) 07/19/18 04:49 Hct 39.3 % (35.5-45.6) 07/19/18 04:49 MCV 95 fl (84-94) H 07/19/18 04:49 MCH 34 pg (28-32) H 07/19/18 04:49 MCHC 35 % (32-34) H 07/19/18 04:49 RDW 13.5 % (13.2-15.2) 07/19/18 04:49 Plt Count 142 K/mm3 (140-440) 07/19/18 04:49 Lymph % (Auto) 21.1 % (13.4-35.0) 07/19/18 04:49 [place] % (Auto) 6.5 % (0.0-7.3) 07/19/18 04:49 Eos % (Auto) 2.7 % (0.0-4.3) 07/19/18 04:49 Baso % (Auto) 1.1 % (0.0-1.8) 07/19/18 04:49 Lymph # 1.8 K/mm3 (1.2-5.4) 07/19/18 04:49 [place] # 0.6 K/mm3 (0.0-0.8) 07/19/18 04:49 Eos # 0.2 K/mm3 (0.0-0.4) 07/19/18 04:49 Baso # 0.1 K/mm3 (0.0-0.1) 07/19/18 04:49 Seg Neutrophils % 68.6 % (40.0-70.0) 07/19/18 04:49 Seg Neutrophils # 6.0 K/mm3 (1.8-7.7) 07/19/18 04:49 PT 13.6 Sec. (12.2-14.9) 07/19/18 04:49 INR 0.99 (0.87-1.13) 07/19/18 04:49 Sodium 136 mmol/L (137-145) L 07/19/18 04:49 Potassium 3.3 mmol/L (3.6-5.0) L 07/19/18 04:49 Chloride 99.5 mmol/L (98-107) 07/19/18 04:49 Carbon Dioxide 24 mmol/L (22-30) 07/19/18 04:49 Anion Gap 16 mmol/L 07/19/18 04:49 BUN 12 mg/dL (9-20) 07/19/18 04:49 Creatinine 1.1 mg/dL (0.8-1.5) 07/19/18 04:49 Estimated GFR > 60 ml/min 07/19/18 04:49 BUN/Creatinine Ratio 11 % 07/19/18 04:49 Glucose 102 mg/dL (75-100) H 07/19/18 04:49 POC Glucose 99 (70-105) 07/19/18 05:31 Hemoglobin A1c 10.1 % (4-6) H 07/17/18 18:30 Calcium 8.6 mg/dL (8.4-10.2) 07/19/18 04:49 Phosphorus 3.70 mg/dL (2.5-4.5) 07/17/18 18:30 Magnesium 1.90 mg/dL (1.7-2.3) 07/17/18 18:30 Total Bilirubin 0.50 mg/dL (0.1-1.2) 07/18/18 02:56 AST 16 units/L (5-40) 07/18/18 02:56 ALT 11 units/L (7-56) 07/18/18 02:56 Alkaline Phosphatase 79 units/L (35-129) 07/18/18 02:56 Total Creatine Kinase 55 units/L (55-170) 07/17/18 09:03 CK-MB (CK-2) 1.4 ng/mL (0.0-4.0) 07/17/18 09:03 CK-MB (CK-2) Rel Index 2.5 (0-4) 07/17/18 09:03 Troponin T < 0.010 ng/mL (0.00-0.029) 07/18/18 07:07 Total Protein 6.8 g/dL (6.3-8.2) 07/18/18 02:56 Albumin 3.5 g/dL (3.9-5) L 07/18/18 02:56 Albumin/Globulin Ratio 1.1 % 07/18/18 02:56 Triglycerides 91 mg/dL (2-149) 07/19/18 04:49 Cholesterol 123 mg/dL (50-199) 07/19/18 04:49 LDL Cholesterol Direct 87 mg/dL (50-130) 07/19/18 04:49 HDL Cholesterol 34 mg/dL (40-59) L 07/19/18 04:49 Cholesterol/HDL Ratio 3.61 % 07/19/18 04:49 Urine Color Yellow (Yellow) 07/17/18 11:42 Urine Turbidity Clear (Clear) 07/17/18 11:42 Urine pH 5.0 (5.0-7.0) 07/17/18 11:42 Ur Specific [place] 1.024 (1.003-1.030) 07/17/18 11:42 Urine Protein <15 mg/dl mg/dL (Negative) 07/17/18 11:42 Urine Glucose (UA) >=500 mg/dL (Negative) 07/17/18 11:42 Urine Ketones Tr mg/dL (Negative) 07/17/18 11:42 Urine Blood Neg (Negative) 07/17/18 11:42 Urine Nitrite Neg (Negative) 07/17/18 11:42 Urine Bilirubin Neg (Negative) 07/17/18 11:42 Urine Urobilinogen < 2.0 mg/dL (<2.0) 07/17/18 11:42 Ur Leukocyte Esterase Neg (Negative) 07/17/18 11:42 Urine WBC (Auto) 2.0 /HPF (0.0-6.0) 07/17/18 11:42 Urine RBC (Auto) < 1.0 /HPF (0.0-6.0) 07/17/18 11:42 U Epithel Cells (Auto) < 1.0 /HPF (0-13.0) 07/17/18 11:42 Urine Bacteria (Auto) 1+ /HPF (Negative) 07/17/18 11:42 Urine Mucus Few /HPF 07/17/18 11:42 Salicylates < 0.3 mg/dL (2.8-20.0) L 07/17/18 04:32 Urine Opiates Screen Presumptive negative 07/17/18 11:42 Urine Methadone Screen Presumptive negative 07/17/18 11:42 Acetaminophen < 5.0 ug/mL (10.0-30.0) L 07/17/18 04:32 Ur Barbiturates Screen Presumptive negative 07/17/18 11:42 Ur Phencyclidine Scrn Presumptive negative 07/17/18 11:42 Ur Amphetamines Screen Presumptive negative 07/17/18 11:42 U Benzodiazepines Scrn Presumptive negative 07/17/18 11:42 Urine Cocaine Screen Presumptive negative 07/17/18 11:42 U Marijuana (THC) Screen Presumptive negative 07/17/18 11:42 Drugs of Abuse Note Disclamer 07/17/18 11:42 Plasma/Serum Alcohol 0.30 % (0-0.07) H 07/17/18 04:32
[2018-07-19] MEDS: HEPARIN 10,000 UNITS/10 ML ONE ×2 (09:33→09:41)
[2018-07-19] MEDS ORDERED: ASPIRIN PO SCH (10:00)
[2018-07-19] MEDS: SODIUM CHLORIDE FLUSH SYRINGE 10 ML IV SCH ×2 (10:00→22:22)
[2018-07-19] MEDS: LOPRESSOR PO SCH ×2 (10:00→22:24)
[2018-07-19] MEDS ORDERED: ALUM-MAG HYDROX-SIMETH 200-200-20MG/5ML ONE (10:09)
[2018-07-19] MEDS ORDERED: PLAVIX ONE (10:09)
--- NOTE | 2018-07-19 10:30 | Progress Note ---
Assessment and Plan Assessment: Syncope CAD s/p PCI of prox LAD Acute ETOH intoxication Lethargy HTN DM Plan: S/p [facility] this AM with PCI of prox LAD. Initiate DAPT with plavix and ASA. Echo reviewed - EF 50-55%, mild to mod LVH, impaired relaxation, trace TR. Neurology consultation ordered per primary. The patient has been seen in conjunction with Dr. Alford who agrees with the assessment and plan of care. Subjective Date of service: 07/19/18 Principal diagnosis: syncope Interval history: pt for [facility] today, he appears lethargic and his states he is not as alert as usual. no focal deficits noted and he is oriented. Objective Last Vital Signs Temp 98.3 F 07/19/18 07:49 Pulse 69 07/19/18 07:49 Resp 20 07/19/18 07:49 BP 165/78 07/19/18 07:49 Pulse Ox 98 07/19/18 07:49 - Physical Examination General: No Apparent Distress, Other (lethargic ) HEENT: Positive: PERRL, Normocephaly, Mucus Membranes Moist Neck: Positive: neck supple, trachea midline Cardiac: Positive: Reg Rate and Rhythm, S1/S2 Lungs: Positive: clear to auscultation Neuro: Positive: Grossly Intact, Cranial Nerve 2-12 Intact Abdomen: Positive: Soft. Negative: Tender Extremities: Absent: edema - Labs and Meds Coagulation 07/19/18 Range/Units 04:49 PT 13.6 (12.2-14.9) Sec. INR 0.99 (0.87-1.13) Lipids 07/19/18 Range/Units 04:49 Triglycerides 91 (2-149) mg/dL Cholesterol 123 (50-199) mg/dL HDL Cholesterol 34 L (40-59) mg/dL Cholesterol/HDL Ratio 3.61 % CBC 07/19/18 Range/Units 04:49 WBC 8.8 (4.5-11.0) K/mm3 RBC 4.13 (3.65-5.03) M/mm3 Hgb 13.9 (11.8-15.2) gm/dl Hct 39.3 (35.5-45.6) % Plt Count 142 (140-440) K/mm3 Lymph # 1.8 (1.2-5.4) K/mm3 [place] # 0.6 (0.0-0.8) K/mm3 Eos # 0.2 (0.0-0.4) K/mm3 Baso # 0.1 (0.0-0.1) K/mm3 Comprehensive Metabolic Panel 07/19/18 Range/Units 04:49 Sodium 136 L (137-145) mmol/L Potassium 3.3 L (3.6-5.0) mmol/L Chloride 99.5 (98-107) mmol/L Carbon Dioxide 24 (22-30) mmol/L BUN 12 (9-20) mg/dL Creatinine 1.1 (0.8-1.5) mg/dL Glucose 102 H (75-100) mg/dL Calcium 8.6 (8.4-10.2) mg/dL - Imaging and Cardiology EKG: report reviewed (normal sinus rhythm heart rate of [address]-T wave changes-EKG interpreted by me) - Telemetry EKG Rhythm: Sinus Rhythm
--- NOTE | 2018-07-19 11:08 | Cardiac Catherization Report ---
REFERRING PHYSICIAN: Pedrito Vitale M.D. and Dr. Larisa Alford. INDICATION FOR PROCEDURE: The patient is a pleasant 72-year-old gentleman who presents after a fall, questionable syncope, abnormal stress test with transient ischemic dilatation, referred for left heart catheterization. Risks, benefits, and alternatives discussed at length prior to obtaining informed consent. A CT head is noted to be negative for bleed. PROCEDURE IN DETAIL: The patient was brought to the denture laboratory technician in a postabsorptive state, prepped and draped in sterile fashion. Enrique's test in right hand was normal. A 2 mL of 2% lidocaine used to anesthetize the right wrist. A standard 6-Romansh hydrophilic sheath used to cannulate the right radial artery via modified Seldinger technique. All exchanges performed to exchange a J-tip guidewire. JL3.5 catheter used to engage the left main. No dampening or ventricularization. Cineangiography performed in all projections. JR4 catheter was used to cross the aortic valve under fluoroscopic guidance. Left ventriculography performed in 30 HAHN and 30 SAMI projections via hand injections, catheter flushed. Manual pullback performed with continuous pressure monitoring. Catheter used to engage the right coronary. No dampening or ventricularization. Cineangiography performed in all projections. Next, catheter removed from the body of wire. DATA: Aortic pressure is 118/80, LV pressure is 118, LVEDP of 9 mmHg. Left ventriculography revealed normal systolic performance with estimated ejection fraction of 55-60%. CORONARY ANATOMY: This is a right dominant system. Right coronary is a large vessel, courses AV groove, distally bifurcates in the posterior descending, posterolateral branch, no discrete stenosis identified. Left main is a long vessel. No significant disease. Bifurcates in left anterior descending and left circumflex. Left circumflex is a moderate sized vessel, courses AV groove. Large OM trunk, diminutive to AV groove circ. No significant disease. LAD is a moderate sized vessel, courses anterior intergroove, wraps around the apex. There is a complex eccentric long proximal LAD stenosis with a maximal narrowing of approximately 95% with angiographic characterizations of ulceration. At this point, given his presentation with unexplained syncope, abnormal stress test with transient ischemic dilatation, we proceeded with PCI of proximal LAD. Heparin is given. Abnormal ACT is confirmed. The patient loaded with aspirin and Plavix. Given his fall, unknown compliance, decided to use a bare metal stent. An EBU 3.5 guide used to engage left main without difficulty across the lesion with a Prowater wire without difficulty. Predilated the lesion with a 2.5 x 12 balloon. We used an Integrity 2.75 x 26 bare metal stent expanded to 2.8 throughout at 12 DANIELLE for 30 seconds. Excellent angiographic result. Intravascular ultrasound was performed, multiple passes were made, which reveals a well-opposed and well expanded stent. Proximally, there is only mild disease with an MLA over 7 mm2. Excellent angiographic and ultrasonographic results. No complications noted. CARMEN 3 flow. Final stenosis is 0%. CONCLUSIONS: Severe single-vessel coronary artery disease with 95% proximal LAD stenosis, successful IVUS guided PCI with placement of Integrity 2.75 x 26 bare metal stent with excellent angiographic and ultrasonographic results. Aspirin, statin, Plavix therapy, blood pressure control. No other obstructive disease identified, normal LV function without evidence of aortic stenosis. No dysrhythmias noted during the procedure. The patient is clinically stable. The procedure explained at length to the patient and family. All questions and concerns were addressed. A standard right radial care. JOB# [id number] SBM/NTS
[2018-07-19] MEDS: NYSTOP TP SCH ×2 (14:00→22:27)
[2018-07-19] MEDS: HCTZ PO SCH (17:13)
[2018-07-19] MEDS: NORVASC PO SCH (17:13)
[2018-07-19] MEDS: PEPCID PO SCH ×2 (17:14→22:25)
[2018-07-19] MEDS: TRADJENTA PO SCH (17:14)
[2018-07-19] MEDS: FOLVITE PO SCH (17:14)
[2018-07-19] MEDS: THERAGRAN Tab PO SCH (17:14)
[2018-07-19] MEDS: ZESTRIL PO SCH (17:14)
[2018-07-19] MEDS: VITAMIN B-1 PO SCH (17:14)
[2018-07-19] MEDS: KCL 10MEQ/100ML 10 MEQ/100 ML BAG IV SCH ×2 (17:53→19:09)
[2018-07-19] MEDS ORDERED: LIBRIUM PO PRN (18:00)
[2018-07-19] MEDS ORDERED: ATIVAN IV PRN (18:00)
[2018-07-19] MEDS: LOVENOX SUB-Q SCH (22:25)
[2018-07-19] MEDS: LANTUS SUB-Q SCH (22:26)
--- NOTE | 2018-07-20 00:01 | Cat Scan Report ---
FINAL REPORT EXAM: CT HEAD/BRAIN WO CON HISTORY: ams TECHNIQUE: 2.5 millimeter axial images from the skullbase to the vertex. Comparison: Head CT dated July 17, 2018 FINDINGS: White matter changes most likely represent areas of chronic post ischemic demyelination/small vessel disease. 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 There appears to be a chronic lacunar infarct in the right thalamus. There is no evidence of intracranial hemorrhage or mass effect. Ventricular size is concordant with the degree of atrophy. There is atherosclerotic vascular calcification of the internal carotid arteries and vertebral arteries bilaterally at the skullbase. The visualized portions of the orbits, paranasal and mastoid sinuses are notable for an air-fluid level in the sphenoid sinus. This is slightly increased in size in the interval. IMPRESSION: 1. No evidence of an acute intracranial process, intracranial hemorrhage or mass effect. 2. Slight interval increase in size of air-fluid level in the sphenoid sinus. In the proper clinical setting acute sinusitis would need to be considered.
[2018-07-20 05:25] LABS: Basophils # (Auto) 0.1 K/mm3 (0.0-0.1); Basophils % (Auto) 0.8 % (0.0-1.8); Eosinophils # (Auto) 0.2 K/mm3 (0.0-0.4); Hemoglobin 13.6 gm/dl (11.8-15.2); Lymphocytes % (Auto) 14.4 % (13.4-35.0); Mean Corpuscular HGB Conc 36 % (32-34); Mean Corpuscular Hemoglobin 34 pg (28-32); Mean Corpuscular Volume 96 fl (84-94); Monocytes # (Auto) 0.5 K/mm3 (0.0-0.8); Monocytes % (Auto) 7.1 % (0.0-7.3); Platelet Count 132 K/mm3 (140-440); Red Blood Count 3.98 M/mm3 (3.65-5.03); Red Cell Distribution Width 13.2 % (13.2-15.2)
[2018-07-20 05:46] LABS: BUN/Creatinine Ratio 9; Blood Urea Nitrogen 10 mg/dL (9-20); Hemolysis Index 9
[2018-07-20] MEDS: HumaLOG SUB-Q SCH ×2 (08:39→12:26)
--- NOTE | 2018-07-20 09:06 | XRay Report ---
AP CHEST: HISTORY: Post PCI AP view of the chest demonstrates a normal mediastinal and cardiac contour with clear lungs and normal bony and soft tissue structures. IMPRESSION: No acute process
--- NOTE | 2018-07-20 09:23 | Discharge Summary ---
Providers - Providers Date of Admission: 07/17/18 12:25 Attending physician: JANN REYES MD 07/18/18 12:50 Consult to Physician [CONS] Routine Comment: Consulting Provider: CINTHIA SILVA Physician Instructions: Reason For Exam: abnormal stress test 07/19/18 09:23 Consult to Physician [CONS] Routine Comment: Consulting Provider: MIGUEL A PATTERSON Physician Instructions: Reason For Exam: AMS 07/19/18 10:32 Consult to Cardiac Rehabilitation [CONS] Routine Reason For Exam: Cardiac Rehab Evaluation Primary care physician: STEERER Hospitalization Reason for admission: syncope Condition: Stable Hospital course: 72-year-old man presented to the emergency department was a complaints of passed out. Patient has been drinking alcohol and passed out, CPR was done by bystander. Patient passed out for 5 minutes. At presentation to ED patient was alert and oriented, alcohol level was 0.3 at presentation. Patient was started on CIWA protocol cardiology was consulted patient proceeded to have a cardiac cath with PCI of prox LAD. Initiate DAPT with plavix and ASA. Echo reviewed - EF 50-55%, mild to mod LVH, impaired relaxation, trace TR. Patient was noted to have change mental status which was felt to be secondary to concusion, imaging studies of the brain where unremarkable. The patient was evaluated by neurology also. Counselling on ETOH was provided for 20 Mins despite the stating the patient does not drink etoh, his etoh level was 0.3 on admission, this could be due to the one time admitted etoh when the event happened. His mental status improved and he is stable for discharge at this time. Syncope CAD s/p PCI of prox LAD Acute Diastolic Heart failure Acute ETOH intoxication Acute Metabolic Encephalopathy secondary to Concusion DM WITH HYPERGLYCEMIA Uncontrolled hypertension Hypokalemia Disposition: DC-01 TO HOME OR SELFCARE Time spent for discharge: 35 mins Core Measure Documentation - Palliative Care Palliative Care/ Comfort Measures: Not Applicable - Core Measures Any of the following diagnoses?: none - VTE Discharge Requirements Deep Vein Thrombosis/Pulmonary Embolism Present on Admission: No Exam - Physical Exam Narrative exam: Not in cardiopulmonary distress. The patient appeared well nourished and normally developed. Vital signs as documented. Head exam is unremarkable. No scleral icterus . Neck is without jugular venous distension, thyromegaly, or carotid bruits. Lungs are clear to auscultation. Cardiac exam reveals regular rate and Rhythm. First and second heart sounds normal. No murmurs, rubs or gallops. Abdominal exam reveals normal bowel sounds, no masses, no organomegaly and no aortic enlargement. Extremities are nonedematous and both femoral and pedal pulses are normal. [employer]: Alert and oriented 3. No focal weakness. - Constitutional Vitals: Temp Pulse Resp BP Pulse Ox 98.5 F 67 20 103/70 99 07/20/18 08:17 07/20/18 08:17 07/20/18 08:07/20/18 08:07/20/18 08:17 Plan Activity: advance as tolerated, fall precautions Diet: diabetic Special Instructions: record daily BP diary, record blood sugar diary Follow up with: PRIMARY CAREMD [Primary Care Provider] - 3-5 Days MANDY CHAMPION MD [Staff Physician] - 7 Days Prescriptions: AtorvaSTATin [Lipitor] 40 mg PO QHS #30 tablet amLODIPine [Norvasc] 10 mg PO QDAY #30 tablet Aspirin [Aspirin BABY CHEW TAB] 81 mg PO QDAY #30 tab.chew Clopidogrel [Plavix] 75 mg PO QDAY #30 tablet Famotidine [Pepcid] 20 mg PO BID #60 tablet hydroCHLOROthiazide [HCTZ] 25 mg PO QDAY #30 tablet Metoprolol [Lopressor TAB] 50 mg PO BID #60 tablet Nystatin [Nystop Powder] 1 applic TP BID #1 powder
[2018-07-20] MEDS ORDERED: PLAVIX PO SCH (10:00)
[2018-07-20] MEDS ORDERED: BABY ASPIRIN PO SCH (10:00)
[2018-07-20] MEDS: NORVASC PO SCH (10:26)
[2018-07-20] MEDS: HCTZ PO SCH (10:27)
[2018-07-20] MEDS: PEPCID PO SCH (10:27)
[2018-07-20] MEDS: NYSTOP TP SCH (10:27)
[2018-07-20] MEDS: FOLVITE PO SCH (10:27)
[2018-07-20] MEDS: TRADJENTA PO SCH (10:31)
[2018-07-20] MEDS: THERAGRAN Tab PO SCH (10:31)
[2018-07-20] MEDS: LOPRESSOR PO SCH (10:31)
[2018-07-20] MEDS: ZESTRIL PO SCH (10:32)
[2018-07-20] MEDS: SODIUM CHLORIDE FLUSH SYRINGE 10 ML IV SCH (10:32)
[2018-07-20] MEDS: VITAMIN B-1 PO SCH (10:35)
[2018-07-20 11:23] VITALS: BP 133/70
--- NOTE | 2018-07-20 11:26 | Progress Note ---
Assessment and Plan Assessment: Syncope CAD s/p PCI of prox LAD Acute ETOH intoxication / ? ETOH withdrawal HTN DM Plan: Currently stable cardiac status. Pt may discharge home from cardiology standpoint on current cardiac regimen. Follow up in our [place] office with Dr. Alford on 08/01/2018 @ 9:30AM. The patient has been seen in conjunction with Dr. Alford who agrees with the assessment and plan of care. Subjective Date of service: 07/20/18 Principal diagnosis: syncope Interval history: pt sitting up in chair, alert and oriented, no current complaints. at bedside. Objective Last Vital Signs Temp 98.5 F 07/20/18 08:17 Pulse 67 07/20/18 10:31 Resp 20 07/20/18 08:17 BP 103/70 07/20/18 10:31 Pulse Ox 99 07/20/18 08:17 - Physical Examination General: Appears Well, No Apparent Distress HEENT: Positive: PERRL, Normocephaly, Mucus Membranes Moist Neck: Positive: neck supple, trachea midline Cardiac: Positive: Reg Rate and Rhythm, S1/S2 Lungs: Positive: clear to auscultation Neuro: Positive: Grossly Intact, Cranial Nerve 2-12 Intact Abdomen: Positive: Soft. Negative: Tender Incision: Cardiac Cath Site (right radial LHC site c/d/i with no evidence of bleeding or hematoma ) Musculoskeletal: No Pain Extremities: Absent: edema - Labs and Meds Cardiac Enzymes 07/20/18 Range/Units 04:45 CK-MB (CK-2) 12.0 H (0.0-4.0) ng/mL CBC 07/20/18 Range/Units 04:45 WBC 6.8 (4.5-11.0) K/mm3 RBC 3.98 (3.65-5.03) M/mm3 Hgb 13.6 (11.8-15.2) gm/dl Hct 38.0 (35.5-45.6) % Plt Count 132 L (140-440) K/mm3 Lymph # 1.0 L (1.2-5.4) K/mm3 [place] # 0.5 (0.0-0.8) K/mm3 Eos # 0.2 (0.0-0.4) K/mm3 Baso # 0.1 (0.0-0.1) K/mm3 Comprehensive Metabolic Panel 07/20/18 Range/Units 04:45 Sodium 136 L (137-145) mmol/L Potassium 4.0 D (3.6-5.0) mmol/L Chloride 97.8 L (98-107) mmol/L Carbon Dioxide 28 (22-30) mmol/L BUN 10 (9-20) mg/dL Creatinine 1.1 (0.8-1.5) mg/dL Glucose 124 H (75-100) mg/dL Calcium 9.0 (8.4-10.2) mg/dL - Imaging and Cardiology EKG: report reviewed (normal sinus rhythm heart rate of [address]-T wave changes-EKG interpreted by me) Echo: report reviewed ( EF 50-55%, mild to mod LVH, impaired relaxation, trace TR. ) Cardiac cath: report reviewed (07/19/2018: [facility] with PCI of prox LAD) - Telemetry EKG Rhythm: Sinus Rhythm
== END 2018-07-20 14:32 | disposition home or self-care (01) | DRG 248 ==
LOC: ED 02:48 → 4A 12:25
PROVIDERS: ADMIT Internal Medicine; ATTEND Internal Medicine
PROC: 02703DZ Dilation of Coronary Artery, One Artery with Intraluminal Device, Percutaneous Approach (ICD-10-PCS; principal; 2018-07-19)
PROC: 4A023N7 Measurement of Cardiac Sampling and Pressure, Left Heart, Percutaneous Approach (ICD-10-PCS; 2018-07-19)
PROC: B2111ZZ Fluoroscopy of Multiple Coronary Arteries using Low Osmolar Contrast (ICD-10-PCS; 2018-07-19)
PROC: B2151ZZ Fluoroscopy of Left Heart using Low Osmolar Contrast (ICD-10-PCS; 2018-07-19)
PROC: B240ZZ3 Ultrasonography of Single Coronary Artery, Intravascular (ICD-10-PCS; 2018-07-19)
DX: I25.10 Atherosclerotic heart disease of native coronary artery without angina pectoris (principal); I46.9 Cardiac arrest, cause unspecified; G93.40 Encephalopathy, unspecified; I50.31 Acute diastolic (congestive) heart failure; S09.90XA Unspecified injury of head, initial encounter; F10.129 Alcohol abuse with intoxication, unspecified; E87.6 Hypokalemia; I10 Essential (primary) hypertension; E11.9 Type 2 diabetes mellitus without complications; Y90.0 Blood alcohol level of less than 20 mg/100 ml; E78.00 Pure hypercholesterolemia, unspecified; W18.39XA Other fall on same level, initial encounter; Y93.89 Activity, other specified; Y92.098 Other place in other non-institutional residence as the place of occurrence of the external cause; Y99.8 Other external cause status; Z79.84 Long term (current) use of oral hypoglycemic drugs; Z79.899 Other long term (current) drug therapy; I11.0 Hypertensive heart disease with heart failure
CPT/HCPCS: 36415; 70450; 71045; 71275; 78452; 80048; 80053; 80061; 80307; 80320; 81001; 82140; 82550; 82553; 82962; 83036; 83735; 84100; 84484; 85025; 85347; 85610; 92928; 92978; 93005; 93010; 93017; 93306; 93458; 93880; A9270-GY; A9502; C1725; C1753; C1769; C1876; C1887; C1894; G0480; J1644; J1650; J1815; J2060; J2250; J2785; J3010; J3411; J3480; J7030; J7040; Q9967